=== PATIENT | male | born 1995 | race African-American/Black ===

== ENCOUNTER 2016-08-13 14:29 | Emergency (ER) | payer OTHER ==
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
[2016-08-13 16:31] VITALS: BP 135/61
== END 2016-08-13 16:31 | disposition home or self-care (01) ==
LOC: ER 14:29
DX: S40.022A Contusion of left upper arm, initial encounter (principal); S60.051A Contusion of right little finger without damage to nail, initial encounter; V43.52XA Car driver injured in collision with other type car in traffic accident, initial encounter
CPT/HCPCS: 99283

== ENCOUNTER 2019-06-01 19:45 | Emergency (ER) | payer BC, OTHER ==
--- NOTE | 2019-06-01 19:55 | ER Document Report ---
ED ENT - General Chief Complaint: Sore Throat Stated Complaint: THROAT PAIN Time Seen by Provider: 06/01/19 19:50 Mode of Arrival: Ambulatory Information source: Patient Notes: 23-year-old male presented to ED for complaint of sore throat runny nose cough congestion he has been to the primary care multiple times. He states that he took steroids Thursday and Thursday and then started amoxicillin on Thursday. He states he is continuing to have a sore throat so he came to the emergency room. He states he is was taking ibuprofen and Tylenol and switch to ibuprofen and Advil I have explained to him that ibuprofen and Advil at the same medicine. TRAVEL OUTSIDE OF THE [place] IN LAST 30 DAYS: No - HPI Patient complains to provider of: Ear problem, Nose problem, Throat problem Onset: Last week Onset/Duration: Persistent Quality of pain: Achy, Sharp Severity: Moderate Pain Level: 4 Context: Recent Illness Location of pain: Ears, Nose, Sinus, Throat Associated symptoms: Ear pain, Runny nose, Sinus pain, Sinus drainage, Sore throat, Swollen glands Similar symptoms previously: Yes Recently seen / treated by doctor: Yes - Related Data Allergies/Adverse Reactions: No Known Allergies Allergy (Unverified 06/01/19 19:54) Past Medical History - General Information source: Patient - Social History Smoking Status: Never Smoker Frequency of alcohol use: None Drug Abuse: None Occupation: [employer] Lives with: Alone Family History: Reviewed & Not Pertinent Patient has suicidal ideation: No Patient has homicidal ideation: No - Past Medical History Cardiac Medical History: Reports: None Pulmonary Medical History: Reports: Hx Asthma EENT Medical History: Reports: None Neurological Medical History: Reports: None Endocrine Medical History: Reports: None Malignancy Medical History: Reports None GI Medical History: Reports: None Musculoskeletal Medical History: Reports None Skin Medical History: Reports None Psychiatric Medical History: Reports: None Traumatic Medical History: Reports: None Infectious Medical History: Reports: None Surgical Hx: Negative Past Surgical History: Reports: None - Immunizations Immunizations up to date: Yes Hx Diphtheria, Pertussis, Tetanus Vaccination: Yes Review of Systems - Review of Systems Constitutional: No symptoms reported EENT: Ear pain, Nose congestion, Nose discharge, Sinus pressure, Throat pain Cardiovascular: No symptoms reported Respiratory: No symptoms reported Gastrointestinal: No symptoms reported Genitourinary: No symptoms reported Male Genitourinary: No symptoms reported Musculoskeletal: No symptoms reported Skin: No symptoms reported Hematologic/Lymphatic: No symptoms reported Neurological/Psychological: No symptoms reported -: Yes All other systems reviewed and negative Physical Exam - Vital signs Vitals: Temp Pulse Resp BP Pulse Ox 98.6 F 69 16 133/72 H 100 06/01/19 19:50 06/01/19 19:50 06/01/19 19:50 06/01/19 19:50 06/01/19 19:50 Interpretation: Normal - General General appearance: Appears well, Alert - HEENT Head: Normocephalic, Atraumatic Eyes: Normal Pupils: PERRL Ears: Normal External canal: Normal Tympanic membrane: Normal Sinus: Normal Nasal: Purulent discharge, Swelling Mouth/Lips: Normal Mucous membranes: Normal Pharynx: Erythema, Exudate, Post nasal drainage, Tonsillar hypertrophy Neck: Anterior cervical chain - Respiratory Respiratory status: No respiratory distress Chest status: Nontender Breath sounds: Nonproductive cough. No: Rales, Rhonchi, Stridor Chest palpation: Normal - Cardiovascular Rhythm: Regular Heart sounds: Normal auscultation Murmur: No - Abdominal Inspection: Normal Distension: No distension Bowel sounds: Normal Tenderness: Nontender Organomegaly: No organomegaly - Back Back: Normal, Nontender - Extremities General upper extremity: Normal inspection, Nontender, Normal color, Normal ROM, Normal temperature General lower extremity: Normal inspection, Nontender, Normal color, Normal ROM, Normal temperature, Normal weight bearing. No: Pepe's sign - Neurological Neuro grossly intact: Yes Cognition: Normal Orientation: AAOx4 [place] Coma Scale Eye Opening: Spontaneous [place] Coma Scale Verbal: Oriented Sanjay Coma Scale Motor: Obeys Commands [place] Coma Scale Total: 15 Speech: Normal Motor strength normal: LUE, RUE, LLE, RLE Sensory: Normal - Psychological Associated symptoms: Normal affect, Normal mood - Skin Skin Temperature: Warm Skin Moisture: Dry Skin Color: Normal Course - Re-evaluation Re-evalutation: 06/01/19 21:04 Patient has been diagnosed with mono. He is already been on steroids and antibiotics. I have discussed with him mouthwash gargling with salt and soda Tylenol and Motrin and follow-up with his primary doctor. I have also discussed with him no physical contact sports if he has any pain to his left flank area. Patient verbalized understanding and agreement with treatment plan patient was discharged home. - Vital Signs Vital signs: Temp Pulse Resp BP Pulse Ox 98.6 F 69 16 133/72 H 100 06/01/19 19:50 06/01/19 19:50 06/01/19 19:50 06/01/19 19:50 06/01/19 19:50 - Laboratory Laboratory results interpreted by me: 06/01/19 20:02 Monotest POSITIVE H Discharge - Discharge Clinical Impression: Mononucleosis Qualifiers: Infectious mononucleosis etiology: unspecified organism Infectious mononucleosis complication: without complication Qualified Code(s): B27.90 - Infectious mononucleosis, unspecified without complication Condition: Stable Disposition: HOME, SELF-CARE Instructions: Family Physicians / Practices Additional Instructions: Mononucleosis You have been diagnosed as having mononucleosis ("mono"). This is a viral infection which often lasts several weeks. Typically, a week or two of tiredness precedes a sore throat, swollen glands, fever, and aches. Sometimes there's a rash. In severe cases, swollen spleen and liver develop. There is no cure for mononucleosis. You should rest, drink plenty of fluids, and avoid contact sports until you are better. A follow-up examination is usually done in about a week. Further laboratory testing may be necessary then. See the doctor if there is significant worsening of the symptoms or onset of new symptoms such as severe headache, stiff neck, generalized abdominal pain, or faintness. Acetaminophen Acetaminophen may be taken for pain relief or fever control. It's much safer than aspirin, offering a wider range of "safe" dosages. It is safe during . Some brand names are Tylenol, Panadol, Datril, Anacin 3, Tempra, and Liquiprin. Acetaminophen can be repeated every four hours. The following are maximum recommended dosages: WEIGHT Dose Drops Elixir Chewable(80mg) (LBS.) drprs=droppers tsp=teaspoon 6 40 mg .4 ml (1/2) 6-11 80 mg .8 ml (full) 1/2 tsp 1 tab 12-16 120 mg 1 1/2 drprs 3/4 tsp 1 1/2 tabs 17-23 160 mg 2 drprs 1 tsp 2 tabs 24-30 240 mg 3 drprs 1 1/2 tsp 3 tabs 30-35 320 mg 2 tsp 4 tabs 36-41 360 mg 2 1/4 tsp 4 1/2 tabs 42-47 400 mg 2 1/2 tsp 5 tabs 48-53 480 mg 3 tsp 6 tabs 54-59 520 mg 3 1/4 tsp 6 1/2 tabs 60-64 560 mg 3 1/2 tsp 7 tabs 65-70 600 mg 3 3/4 tsp 7 1/2 tabs 71-76 640 mg 4 tsp 8 tabs 77-82 720 mg 4 1/2 tsp 9 tabs 83-88 800 mg 5 tsp 1 0 tabs >89 pounds or adults 650 mg to 900 mg Acetaminophen can be repeated every four hours. Maximum daily dose not to exceed 4000 mg. These maximum recommended dosages are slightly higher than the dosages written on the product container, but these dosages are very safe and well below the toxic dosage for acetaminophen. Ibuprofen Ibuprofen is an excellent, safe drug for pain control. In addition, it has potent antiinflammatory effects which are beneficial, especially in the treatment of injuries, arthritis, or tendonitis. It's best to take ibuprofen with food. Persons with ulcer disease or allergy to aspirin should notify their physician of this before taking ibuprofen. Take the medication exactly as prescribed. Don't take additional doses unless instructed to do so by your doctor. If you develop wheezing, shortness of breath, hives, faintness, stomach pain, vomiting, or dark black stools, return for re-evaluation at once. Salt and soda solution 1 quart of water 1 tablespoon of salt 1 teaspoon of baking soda Mixed 3 ingredients together and boil for 1 minute Placed in a covered quart jar Use 1/2 ounce of cold solution to gargle 3 times a day FOLLOW-UP CARE: If you have been referred to a physician for follow-up care, call the physicians office for an appointment as you were instructed or within the next two days. If you experience worsening or a significant change in your symptoms, notify the physician immediately or return to the Emergency Department at any time for re-evaluation.
[2019-06-01 21:06] VITALS: BP 140/66
== END 2019-06-01 21:10 | disposition home or self-care (01) ==
LOC: ER 19:45
DX: B27.90 Infectious mononucleosis, unspecified without complication (principal); J02.9 Acute pharyngitis, unspecified; R09.89 Other specified symptoms and signs involving the circulatory and respiratory systems; R05 Cough; J34.89 Other specified disorders of nose and nasal sinuses; R09.81 Nasal congestion; H92.09 Otalgia, unspecified ear; J45.909 Unspecified asthma, uncomplicated; R09.82 Postnasal drip; J35.1 Hypertrophy of tonsils
CPT/HCPCS: 36415; 86308; 87070; 87880; 99283